=== PATIENT | male | born 2000 | race African-American/Black ===

== ENCOUNTER 2018-12-05 11:20 | Emergency (ER) | payer BC ==
[~2018-12-05] VITALS: Ht 160 cm; Wt 63.5 kg
[~2018-12-05 11:20] MED LIST: CONCERTA54 MG PO; KLONOPIN1 M1 PO
[2018-12-05] MEDS ORDERED: DOXYCYCLINE100 M3 PO (11:45)
[2018-12-05 11:53] LABS: BILIRUBIN NEGATIVE (NEGATIVE); BLOOD NEGATIVE (NEGATIVE); CLARITY SL CLOUDY (CLEAR); COLOR YELLOW (YELLOW); GLUCOSE NEGATIVE (NEGATIVE); KETONE NEGATIVE (NEGATIVE); LEUKO ESTERASE NEGATIVE (NEGATIVE); NITRITE NEGATIVE (NEGATIVE); SPECIFIC GRAVITY 1.015 (1.005-1.030); UROBILINOGEN 0.2 E.U./dl (0.2-1.0)
[2018-12-05 12:05] LABS: BACTERIA 1+; MUCOUS 2+
== END 2018-12-05 12:14 | disposition home or self-care (01) ==
LOC: ED 11:20
PROVIDERS: Physician Assistant
DX: L73.9 Follicular disorder, unspecified (principal); Z20.2 Contact with and (suspected) exposure to infections with a predominantly sexual mode of transmission; Z79.899 Other long term (current) drug therapy

== ENCOUNTER 2019-01-19 21:02 | Emergency (ER) | payer BC ==
[~2019-01-19] VITALS: Ht 167.6 cm; Wt 65.8 kg
[~2019-01-19 21:02] MED LIST changes: +DOXYCYCLINE100 M3 PO
[2019-01-19] MEDS ORDERED: DOXYCYCLINE100 M3 PO (21:44)
[2019-01-19 22:06] LABS: BILIRUBIN NEGATIVE (NEGATIVE); BLOOD NEGATIVE (NEGATIVE); CLARITY CLEAR (CLEAR); COLOR YELLOW (YELLOW); GLUCOSE NEGATIVE (NEGATIVE); KETONE NEGATIVE (NEGATIVE); LEUKO ESTERASE NEGATIVE (NEGATIVE); NITRITE NEGATIVE (NEGATIVE); SPECIFIC GRAVITY 1.025 (1.005-1.030)
[2019-01-19 22:13] LABS: RBC 0-2 rbc/hpf (0-2)
[2019-01-19 22:14] LABS: BACTERIA 1+; EPITHELIAL CELLS 0-2; MUCOUS TRACE
== END 2019-01-20 01:29 | disposition home or self-care (01) ==
LOC: ED 21:02
PROVIDERS: Nurse Practitioner Family
DX: Z20.2 Contact with and (suspected) exposure to infections with a predominantly sexual mode of transmission (principal); Z79.899 Other long term (current) drug therapy